=== PATIENT | female | born 1970 | race Caucasian/White ===

== ENCOUNTER 2024-04-20 11:40 | Day surgery (SDC) | payer OTHER ==
[~2024-04-20] VITALS: Ht 170.2 cm; Wt 79.4 kg
[~2024-04-20 11:40] MED LIST: ANTIVERT25 MG PO; CYTOMEL5 MCG PO; IBLOOD GLUCOSE TEST STRIP 1 EA TEST VI PRN; LACTATED RINGER'S 1,000 ML IV SCH; LEVOTHYROXINE112 MCG PO; LIDOCAINE HCL 1% 5 ML SDV INJ ONE; MIDAZOLAM HCL 5 MG/5 ML VIAL IV PRN; PAXIL10 MG PO; PHENTERMINE HCL30 MG PO; XANAX0.25 MG PO; fentaNYL citrate 100 MCG/2 ML VIAL IV PRN
[2024-04-20 11:58] VITALS: BP 136/67
[2024-04-20] MEDS ORDERED: fentaNYL citrate 100 MCG/2 ML VIAL ONE ×3 (14:14→14:48)
[2024-04-20] MEDS ORDERED: MIDAZOLAM HCL 5 MG/5 ML VIAL ONE ×3 (14:14→14:52)
--- NOTE | 2024-04-20 15:26 | NUR ---
04/20/24 1526 Yesi Duran 1518-PATIENT ARRIVED TO PACU ON 2L NC RR EVEN PATIENT LAYING SUPINE IVF INFUSING TO RIGHT HAND. LEFT UPPER ARM IV INFILTRATED IN ENDOSCOPY ROOM SALINE LOCKED LEFT ARM IS SWOLLEN PATIENT IS REACTIVE TO VERBAL STIMULI WILL OPEN EYES NODS HEAD NO TO PAIN OR NAUSEA. 1526-DR. FUENTES AT BEDSIDE TALKING TO PATIENT.
[2024-04-20 16:23] VITALS: BP 104/55
--- NOTE | 2024-04-20 16:24 | NUR ---
MOE 1618: PT IS BACK TO DS FROM PACU. SHE IS SLEEPY, BUT EASILY AROUSABLE. CALL LIGHT WITHIN REACH. SISTER IS AT THE BEDSIDE. NO COMPLAINTS OF NAUSEA. LEFT UPPER ARM HAS COBAN IN PLACE AND A HEAT PACK WELL. WATER ON BEDSIDE TABLE.
[2024-04-20] MEDS ORDERED: IBUPROFEN 800 MG TAB PO ONE (17:00)
[2024-04-20 17:01] VITALS: BP 108/56
--- NOTE | 2024-04-20 17:08 | NUR ---
LE 1648: PT IS REPORTING A HEADACHE. VERBAL ORDER RECEIVED FROM DR. FUENTES FOR IBUPROFEN 800MG. LE 1705: PT AND SISTER IS GIVEN VERBAL AND WRITTEN DC INSTRUCTIONS. THEY BOTH VERBALIZE UNDERSTANDING. NO QUESTIONS THIS TIME. PT IS EDUCATED ON HOW TO BEST DRESS HERSELF AND TO OPEN HER CURTAIN WHEN READY.
--- NOTE | 2024-04-23 07:47 | OR ---
[facility] [address] [place], [place] [address] Signed DATE OF OPERATION: 04/20/2024 SURGEON: Sharon Fuentes MD PREOPERATIVE DIAGNOSIS: History of polyps (Dr. Raul Snow in 2017). POSTOPERATIVE DIAGNOSES: 1. Minimal diverticulosis. 2. Polyps x4 (probably hyperplastic). PROCEDURE: Total colonoscopy to cecum with cold morcellation polypectomy x4. ANESTHESIA: Intravenous sedation; fentanyl 100 mcg and Versed 4 mg subcutaneous (infiltrated IV). INDICATION: This 53-year-old white woman is a patient of Dr. Suarez. She underwent colonoscopy by Dr. Snow in 2017, at which point 1 polyp was resected. She has no symptoms of bleeding, diarrhea or constipation and no family history of colon cancer. She does have a history of PTSD. She is admitted to undergo surveillance colonoscopy. She understands the risk of bleeding, infection, and perforation. FINDINGS: The prep was excellent. Complete colonoscopy was undertaken to the cecum with full intubation of the cecum. She did have some level of tolerance to the sedation initially, but ultimately did well. Of note, her original injection of medications was found to be infiltrated; the IV initially placed was in the medial upper arm. Replacement of the IV to the dorsum of the right hand allowed for a good flow and injection of IV sedation that was quite adequate for her needs. I would recommend propofol sedation be given in future interventions of endoscopy, however. PROCEDURE IN DETAIL: The patient was brought to the endoscopy suite and placed in the lateral decubitus position, given intravenous sedation via a left medial upper arm IV. Although, free flow of fluid was noted, there was a little if any effect from the medications. Closer Electronically Signed By: SHARON FUENTES MD 04/23/24 0747 PATIENT NAME: HOOD YADAV OPERATIVE REPORT DATE OF : 72 REPORT #: [id number] PHYSICIAN: SHARON FUENTES MD PCP: DENNIS SUAREZ MD REPORT IS CONFIDENTIAL AND NOT TO BE RELEASED WITHOUT AUTHORIZATION [facility] [address] [place], [place] [address] Signed inspection showed probable infiltration of the IV in the proximal upper arm. On that basis, the infusion was discontinued and IV was replaced to the right hand without problem. A total of 100 mcg of fentanyl and 4 mg of Versed had been given essentially in a subcutaneous approach. Once IV sedation was accomplished, digital rectal examination was undertaken showing no sign of anorectal abnormality. An Olympus video colonoscope was passed in the rectum and manipulated throughout the colon noting a few scattered diverticula. Scope was ultimately advanced to the cecum. The cecum and the ileocecal valve were normal. The scope was withdrawn from that point. Examination showed no sign of abnormality into the sigmoid where three small probably hyperplastic polyps were noted. They were excised with cold morcellation technique. Further withdrawal showed another small polyp of the rectum, which was excised similarly. Retroflexed view was otherwise normal. Scope was removed and the patient was taken to the recovery room in good condition. CONCLUDING DIAGNOSES: Small polyps x4, probably hyperplastic, and minimal diverticulosis. PLAN: Recommend repeat colonoscopy in 5 to 7 years, sooner if symptoms should develop. I would recommend propofol infusional sedation in the future. She will return to the ongoing care of Dr. Suarez. MD PRESTON Mcghee/MODL /[id number] cc: Dennis Suarez MD Copies: DENNIS SUAREZ MD ~ Electronically Signed By: SHARON FUENTES MD 04/23/24 0747 PATIENT NAME: HOOD YADAV OPERATIVE REPORT DATE OF : 72 REPORT #: [id number] PHYSICIAN: SHARON FUENTES MD PCP: DENNIS SUAREZ MD REPORT IS CONFIDENTIAL AND NOT TO BE RELEASED WITHOUT AUTHORIZATION
--- NOTE | 2024-04-25 09:20 | PATH ---
[facility] [address] [facility] [place], [place] [address] Signed SPECIMEN(S): A SIGMOID POLYP SPECIMEN(S): B SIGMOID POLYP SPECIMEN(S): C RECTAL POLYP SPECIMEN SOURCE: A. SIGMOID POLYP B. SIGMOID POLYP C. RECTAL POLYP CLINICAL HISTORY: Pre-op surveillance for polyp, postop polyps. FINAL PATHOLOGIC DIAGNOSIS: A. Colon, sigmoid, polypectomy: - Hyperplastic polyp B. Colon, sigmoid, polypectomy: - Hyperplastic polyp C. Rectum, polypectomy: - Hyperplastic polyp BRP MICROSCOPIC EXAMINATION: Histologic sections of all submitted blocks are examined by light microscopy. These findings, together with the gross examination, support the pathologic diagnosis. GROSS DESCRIPTION: A. The specimen, labeled and designated "Keven, T, sigmoid polyp," is received in formalin and consists of one morales soft tissue fragment, 0.3 cm. Entirely submitted in (A1). B. The specimen, labeled and designated "Baca, T, sigmoid polyp #2," is received in formalin and consists of three morales soft tissue fragments, ranging from 0.2-0.4 cm. Entirely submitted in (B1). C. The specimen, labeled and designated "Baca, T, rectal polyp," is received in formalin and consists of one morales soft tissue fragment, 0.3 cm. Entirely submitted in (C1). AB (under the direct supervision of a pathologist) The Gross Description was prepared using a voice recognition system. The report was reviewed for accuracy; however, sound-alike word errors, addition and/or deletions may occur. If there is any question about this report, please contact Client Services. PATIENT NAME: HOOD BACA PATHOLOGY DATE OF : 72 REPORT #: [id number] PHYSICIAN: BRYAN MORENO PCP: DENNIS MOSES MD REPORT IS CONFIDENTIAL AND NOT TO BE RELEASED WITHOUT AUTHORIZATION [facility] [address] [place], [place] [address] Signed ADDITIONAL NOTES: Immunohistochemical and/or in situ hybridization studies if performed in this case included appropriate positive controls that reacted as expected. This test was developed and its performance characteristics determined by [facility]. It has not been cleared or approved by the U.S. Food and Drug Administration. The FDA has determined that such clearance or approval is not necessary. This test is used for clinical purposes. It should not be regarded as investigational or for research. [facility] is certified under the Clinical Laboratory Improvement Amendments of 1988 (CLIA) as qualified to perform high complexity clinical laboratory testing. PERFORMING LABORATORY: Technical component was performed by [facility], [address] [place] [address] (CLIA# [id number]). Professional interpretation was performed by [facility], [address] [place] [address] (CLIA#: [id number]). Diagnostician: Raudel Sellers MD Pathologist Electronically Signed 04/25/2024 Copies: ~ PATIENT NAME: HOOD ABCA PATHOLOGY DATE OF : 72 REPORT #: [id number] PHYSICIAN: BRYAN MORENO PCP: DENNIS MOSES MD REPORT IS CONFIDENTIAL AND NOT TO BE RELEASED WITHOUT AUTHORIZATION
== END 2024-04-20 17:15 | disposition home or self-care (01) ==
LOC: DS 11:40
PROVIDERS: ATTEND Surgery
PROC: 0DBN8ZZ Excision of Sigmoid Colon, Via Natural or Artificial Opening Endoscopic (ICD-10-PCS; 2024-04-20)
PROC: 0DBP8ZZ Excision of Rectum, Via Natural or Artificial Opening Endoscopic (ICD-10-PCS; principal; 2024-04-20 13:45)
DX: Z12.11 Encounter for screening for malignant neoplasm of colon (principal); K63.5 Polyp of colon; K62.1 Rectal polyp; K57.30 Diverticulosis of large intestine without perforation or abscess without bleeding; F43.10 Post-traumatic stress disorder, unspecified; Z79.899 Other long term (current) drug therapy; Z90.711 Acquired absence of uterus with remaining cervical stump
CPT/HCPCS: 99153; A9270; G0500; J2250; J3010; J7121